=== PATIENT | male | born 1935 | race Caucasian/White ===

== ENCOUNTER → 2016-12-29 | Outpatient (CLI) | payer MEDICARE, BC ==
[~2016-12-29] MED LIST: AMLODIPINE BES2.5 MG PO; ASPIR 8181 MG PO; MIRALAX17 GM PO; PRAVASTATIN SOD10 MG PO; PROSCAR 5 MG TAB5 MG PO; SOTALOL80 MG PO
== END ==
DX: R79.89 Other specified abnormal findings of blood chemistry (principal); R94.4 Abnormal results of kidney function studies; Z85.038 Personal history of other malignant neoplasm of large intestine; Z53.9 Procedure and treatment not carried out, unspecified reason
CPT/HCPCS: Q9965

== ENCOUNTER 2021-12-29 17:28 | Emergency (ER) | payer MEDICARE ==
[~2021-12-29 17:28] MED LIST changes: +Ceftin PO; +NORVASC10 MG PO; +PRINIVIL20 MG PO
[2021-12-29 18:32] LABS: HEMOGLOBIN 13.8 gm/dl (14.0-17.5); RED BLOOD COUNT 4.33 M/UL (4.20-5.50)
[2021-12-29 19:11] LABS: BUN/CREATININE RATIO 21 (0-10)
[2021-12-29] MEDS ORDERED: LOPRESSOR50 MG PO (19:54)
== END 2021-12-29 20:40 | disposition home or self-care (01) ==
LOC: ER1 17:28
PROVIDERS: Physician Assistant
DX: I48.92 Unspecified atrial flutter (principal); E78.5 Hyperlipidemia, unspecified; I10 Essential (primary) hypertension; Z90.49 Acquired absence of other specified parts of digestive tract
CPT/HCPCS: 71045; 80053; 82550; 82553; 84439; 84443; 84484; 85025; 93005; 99285

== ENCOUNTER → 2021-12-30 | Outpatient (CLI) | payer MEDICARE ==
[~2021-12-30] MED LIST changes: +LOPRESSOR50 MG PO
== END ==
LOC: HEART 5 10:56
DX: R00.2 Palpitations (principal); I48.92 Unspecified atrial flutter

== ENCOUNTER 2022-03-16 17:01 | Inpatient (IN) | payer MEDICARE ==
[~2022-03-16] VITALS: Ht 177.8 cm; Wt 79.4 kg
[2022-03-16 19:58] LABS: HEMOGLOBIN 14.8 gm/dl (14.0-17.5); RED BLOOD COUNT 4.61 M/UL (4.20-5.50); WHITE BLOOD COUNT 8.2 K/UL (4.5-11.0)
[2022-03-17] MEDS ORDERED: METOPROLOL TART50 MG PO (10:38)
[2022-03-22 06:50] LABS: BUN/CREATININE RATIO 26 (0-10)
[2022-03-22] MEDS ORDERED: AMPICILLIN 500500 MG PO (09:09)
[2022-03-22] MEDS ORDERED: OMNICEF 300 MG300 MG PO (09:11)
== END 2022-03-22 11:54 | disposition home or self-care (01) | DRG 551 ==
LOC: MED SURG 4 18:00
PROVIDERS: Internal Medicine; ADMIT Internal Medicine
DX: M47.892 Other spondylosis, cervical region (principal); J18.9 Pneumonia, unspecified organism; N17.9 Acute kidney failure, unspecified; Z20.822 Contact with and (suspected) exposure to COVID-19; N39.0 Urinary tract infection, site not specified; M48.061 Spinal stenosis, lumbar region without neurogenic claudication; M48.02 Spinal stenosis, cervical region; M50.30 Other cervical disc degeneration, unspecified cervical region; I12.9 Hypertensive chronic kidney disease with stage 1 through stage 4 chronic kidney disease, or unspecified chronic kidney disease; N18.30 Chronic kidney disease, stage 3 unspecified; M51.36 Other intervertebral disc degeneration, lumbar region; H91.93 Unspecified hearing loss, bilateral; E78.5 Hyperlipidemia, unspecified; B95.2 Enterococcus as the cause of diseases classified elsewhere; B96.89 Other specified bacterial agents as the cause of diseases classified elsewhere; I48.0 Paroxysmal atrial fibrillation; Z79.01 Long term (current) use of anticoagulants; Z79.82 Long term (current) use of aspirin; Z90.49 Acquired absence of other specified parts of digestive tract; Z98.890 Other specified postprocedural states
CPT/HCPCS: 36415; 70450; 71045; 72131; 72141; 72146; 72148; 80048; 80053; 81001; 82550; 82607; 82746; 83036; 83540; 83550; 83735; 84100; 84207; 84439; 84443; 85025; 85610; 85652; 86140; 87077; 87086; 87186; 93005; 97110-GP-CQ; 97116; 97116-GP-CQ; 97161; 97530-GP-CQ; J0290; J0696; J1650